=== PATIENT | female | born 2000 | race Caucasian/White ===

== ENCOUNTER → 2022-11-13 11:48 | Outpatient (REF) | payer OTHER, MEDICAID, SELFPAY ==
--- NOTE | 2022-11-13 12:05 | ECG_ITS ---
Test Reason : cp heart racing occasionally Blood Pressure : / mmHG Vent. Rate : 073 BPM Atrial Rate : 073 BPM P-R Int : 148 ms QRS Dur : 090 ms QT Int : 382 ms P-R-T Axes : 021 060 059 degrees QTc Int : 420 ms Sinus rhythm with marked sinus arrhythmia RSR' or QR pattern in V1 suggests right ventricular conduction delay Borderline ECG No previous ECGs available Referred By: Nadia Quezada Electronically Signed By:PAUL ABEBE
== END ==
LOC: HO.CARD 11:48
PROVIDERS: Visit Provider Pediatrics
DX: R07.9 Chest pain, unspecified (principal)
CPT/HCPCS: 93005